=== PATIENT | female | born 1990 | race African-American/Black ===

== ENCOUNTER 2016-11-29 02:25 | Emergency (ER) | payer OTHER ==
[~2016-11-29] VITALS: Ht 167.6 cm; Wt 101.0 kg
[2016-11-29 02:28] VITALS: BP 129/70; PULSE 73; RESP 16; TEMP 97.9; O2SAT 96
--- NOTE | 2016-11-29 02:55 | PD ---
HPI Chief Complaint: Bite or Sting Time Seen by Provider: 02:55 Travel History International Travel<30 days: No Contact w/Intl Traveler<30days: No Traveled to known affect area: No History of Present Illness HPI 26-year-old female with no significant medical history presents to emergency department for evaluation of insect bites on her right cheek. Patient states she is uncertain what bit her but woke up and felt the area. It was sore and swollen. She is concerned because she does not want her eye to swell shut. She denies any other new exposures. No recent illnesses, fever, chills. No other symptoms to report. She did not take anything for the symptoms. PFSH Past Medical History Medical History: Denies Significant Hx Social History Alcohol Use: No Tobacco Use: No Substance Use: No Allergies-Medications (Allergen,Severity, Reaction): Coded Allergies: No Known Allergies (Unverified , 11/29/16) Review of Systems Except as stated in HPI: all other systems reviewed are Neg Physical Exam Narrative GENERAL: Well-nourished, well-developed female patient in no acute distress SKIN: Warm and dry. 3 sub-centimeter mildly erythematous wheals on the right lateral cheek. No fluctuation. No vesicles or pustular formation. HEAD: Normocephalic. EYES: No scleral icterus. No injection or drainage. NECK: Supple, trachea midline. No JVD or lymphadenopathy. CARDIOVASCULAR: Regular rate and rhythm without murmurs, gallops, or rubs. RESPIRATORY: Breath sounds equal bilaterally. No accessory muscle use. GASTROINTESTINAL: Abdomen soft, non-tender, nondistended. MUSCULOSKELETAL: No cyanosis, or edema. BACK: Nontender without obvious deformity. No CVA tenderness. Data Data Last Documented VS Vital Signs Date Time Temp Pulse Resp B/P Pulse Ox O2 Delivery O2 Flow Rate FiO2 11/29/16 02:28 97.9 73 16 129/70 96 Orders Diphenhydramine (Benadryl) (11/29/16 03:00) Dexamethasone Inj (Decadron Inj) (11/29/16 03:00) MDM Medical Decision Making Medical Screen Exam Complete: Yes Emergency Medical Condition: Yes Medical Record Reviewed: Yes Differential Diagnosis Insect bites versus urticaria versus shingles versus contact dermatitis versus erysipelas versus cellulitis Narrative Course 26 year-old female presents to the emergency department for evaluation of insect bite to her face. Patient does have 3 areas of blanchable wheals on the right cheek. This is consistent with insect bite. Patient is given symptomatic treatment here in the emergency department. She is counseled on care and agrees to return immediately if any acute worsening of symptoms. Diagnosis Primary Impression: Insect bite Qualified Code: W57.XXXA - Insect bite, initial encounter Referrals: Primary Care Physician Patient Instructions: General Instructions, Insect Bite or Sting (ED) Additional Instructions: Do not scratch at the area Continue Benadryl as directed on the package as needed for itching Follow-up with primary care provider Return immediately to the emergency department with any acute worsening of symptoms Med/Other Pt SpecificInfo: No Change to Meds Disposition: 01 DISCHARGE HOME Condition: Stable Romina Diggs Nov 29, 2016 02:55
[2016-11-29] MEDS ORDERED: diphenhydrAMINE HCL 50 MG CAP PO ONE (03:00)
[2016-11-29] MEDS ORDERED: DEXAMETHASONE SOD PHOS 4 MG/ML VIAL IM ONE (03:00)
== END 2016-11-29 03:53 | disposition home or self-care (01) ==
LOC: NEPB 02:25
DX: L98.8 Other specified disorders of the skin and subcutaneous tissue (principal); W57.XXXA Bitten or stung by nonvenomous insect and other nonvenomous arthropods, initial encounter
CPT/HCPCS: 96372; 99281; J1100; Q0163

== ENCOUNTER 2017-11-10 11:44 | Emergency (ER) | payer OTHER ==
[~2017-11-10] VITALS: Ht 167.6 cm; Wt 115.5 kg
[2017-11-10 11:45] VITALS: BP 163/73; PULSE 91; RESP 16; TEMP 98.7; O2SAT 99
== END 2017-11-10 12:52 | disposition left against medical advice (07) ==
LOC: NED 11:44
DX: J02.9 Acute pharyngitis, unspecified (principal)
CPT/HCPCS: 99281

== ENCOUNTER 2018-02-15 22:34 | Emergency (ER) | payer OTHER ==
[~2018-02-15] VITALS: Ht 167.6 cm; Wt 107.5 kg
[2018-02-15 22:59] VITALS: PULSE 71; RESP 16; TEMP 97.6; O2SAT 98
[2018-02-15] MEDS ORDERED: PRED20 PO (23:25)
--- NOTE | 2018-02-15 23:26 | PD ---
HPI Chief Complaint: Cold / Flu Symptoms Time Seen by Provider: 23:13 Travel History International Travel<30 days: No Contact w/Intl Traveler<30days: No Traveled to known affect area: No History of Present Illness HPI Patient is a 27-year-old female presents emergency department for evaluation of dry itchy throat for the past few days. No chest pain no shortness of breath no nausea no vomiting. Patient states when she coughs she feels incredibly irritation in the back of her throat. She states this happened her once before and she was told she had bronchitis. She is a non-smoker. No fevers no earaches no headaches. Patient states symptoms are moderate, for the past few days, worsens when she breathes through her mouth, context as above PFSH Past Medical History Medical History: Denies Significant Hx ?: Not LMP: 02/04/18 Past Surgical History Section: Yes Social History Alcohol Use: No Tobacco Use: No Substance Use: No Allergies-Medications (Allergen,Severity, Reaction): Coded Allergies: ibuprofen (Verified Allergy, Intermediate, SHORTNESS OF BREATH, ITCHING, ) No Known Allergies (Unverified Allergy, Unknown, 02/15/18) Reported Meds & Prescriptions Reported Meds & Active Scripts Active Prednisone 20 Mg Tab 40 Mg PO DAILY 5 Days Review of Systems Except as stated in HPI: all other systems reviewed are Neg Physical Exam Narrative GENERAL: Well-nourished, well-developed patient. SKIN: Focused skin assessment warm/dry. HEAD: Normocephalic. EYES: No scleral icterus. No injection or drainage. ENT: TMs clear bilaterally, oropharynx minimally erythematous but no edema uvula midline tonsils normal. NECK: Supple, trachea midline. No JVD or lymphadenopathy. CARDIOVASCULAR: Regular rate and rhythm without murmurs, gallops, or rubs. RESPIRATORY: Breath sounds equal bilaterally. No accessory muscle use. GASTROINTESTINAL: Abdomen soft, non-tender, nondistended. MUSCULOSKELETAL: No cyanosis, or edema. BACK: Nontender without obvious deformity. No CVA tenderness. Data Data Last Documented VS Vital Signs Date Time Temp Pulse Resp B/P (MAP) Pulse Ox O2 Delivery O2 Flow Rate FiO2 02/15/18 22:59 97.6 71 16 98 Orders Orders Ed Discharge Order (02/15/18 23:26) [facility] Medical Decision Making Medical Screen Exam Complete: Yes Emergency Medical Condition: Yes Differential Diagnosis Bronchitis, laryngitis, URI, Narrative Course Patient room to the emergency department, certainly there is nothing malicious about her symptoms today and she appears well. Discussed symptomatic management , will add short course of prednisone. She is stable for discharge. Discussed return to ED criteria and follow-up with a primary care physician or the [facility] Diagnosis Primary Impression: Sore throat (viral) Additional Impression: Sore throat and laryngitis Referrals: [facility] Med/Other Pt SpecificInfo: Prescription(s) given Scripts Prednisone (Prednisone) 20 Mg Tab 40 MG PO DAILY for 5 Days, #10 TAB 0 Refills Prov: Chris Cabrera MD 02/15/18 Disposition: 01 DISCHARGE HOME Condition: Stable Chris Cabrera MD Feb 15, 2018 23:26
== END 2018-02-15 23:46 | disposition home or self-care (01) ==
LOC: NEPC 22:34
DX: J02.9 Acute pharyngitis, unspecified (principal); J04.0 Acute laryngitis; Z88.6 Allergy status to analgesic agent; Z79.899 Other long term (current) drug therapy
CPT/HCPCS: 99283